=== PATIENT | female | born 1960 | race Caucasian/White ===

== ENCOUNTER 2019-01-05 09:27 | Outpatient (CLI) | payer OTHER, SELFPAY ==
--- NOTE | 2019-01-05 13:10 | DI.MAMMO_ITS ---
EXAM: MG MAMMO SCREENING CLINICAL HISTORY: SCREENING Z12.31 TECHNIQUE: Bilateral full field digital CC and MLO mammographic images were obtained with 3D tomosyn thesis and utilizing computer aided detection (CAD). COMPARISON: Available for comparison. FINDINGS: Masses/Architectural Distortion: None seen. Microcalcifications: No suspicious pleomorphic-type are seen. Skin Thickening/Nipple Retraction: None. IMPRESSION: 1. No significant interval change with no specific features of malignancy noted. 2. Unless there is more urgent need, screening mammography is recommended, as per [place] guidelines. ACR BI-RAD Category- 1 Negative Breast Density - Category B - Scattered areas of fibroglandular density A negative radiographic report should not delay biopsy if a dominant or clinically suspicious mass is present. Up to ten percent of cancers are not identified on mammography. A negative report may reinforce clinical impression. Adenosis and dense breasts may obscure an underlying neoplasm. False positive reports average 6 to 10%. Patient will receive a letter notifying them of these results.
== END 2019-01-05 09:47 ==
PROVIDERS: PCP Family Medicine; Visit Provider Physician Assistant Medical
DX: Z12.31 Encounter for screening mammogram for malignant neoplasm of breast (principal)
CPT/HCPCS: 77063; 77067

== ENCOUNTER 2020-07-30 02:34 | Outpatient (CLI) | payer OTHER, SELFPAY ==
--- NOTE | 2020-07-30 | DI.MAMMO_ITS ---
Exam(s) MAMMO SCREENING EXAM: MAMMO SCREENING CLINICAL HISTORY: SCREENING, Z12.31 TECHNIQUE: Bilateral full field digital CC and MLO mammographic images were obtained with 3D tomosyn thesis and utilizing computer aided detection (CAD). COMPARISON: Available for comparison. FINDINGS: Masses/Architectural Distortion: None seen. Microcalcifications: No suspicious pleomorphic-type are seen. Skin Thickening/Nipple Retraction: None. IMPRESSION: 1. No significant interval change with no specific features of malignancy noted. 2. Unless there is more urgent need, screening mammography is recommended, as per [place] guidelines. BI-RADS Category 1 - Negative Breast Density - Category B - Scattered areas of fibroglandular density Breast density category C or D implies that the patient has dense breast tissue. Dense breast tissue is very common and is not abnormal but dense breast tissue can make it harder to find cancer on a ma mmogram. Also, dense breast tissue may increase their breast cancer risk. This information about the result of the mammogram report was provided to the patient to raise their awareness. Use this report when you speak with the patient about their risks for breast cancer, which includes their family hist ory. At that time, you may recommend for more screening tests (Ultrasound or MRI) as they might be us eful based on their risk. A negative radiographic report should not delay biopsy if a dominant or clinically suspicious mass is present. Up to ten percent of cancers are not identified on mammography. A negative report may reinforce clinical impression. Adenosis and dense breasts may obscure an underlying neoplasm. False positive reports average 6 to 10%. Patient will receive a letter notifying them of these results.
== END 2020-07-30 02:54 ==
PROVIDERS: PCP Family Medicine; Visit Provider Family Medicine
DX: Z12.31 Encounter for screening mammogram for malignant neoplasm of breast (principal)
CPT/HCPCS: 77063; 77067

== ENCOUNTER 2020-07-30 08:17 | Emergency (ER) | payer OTHER, SELFPAY ==
--- NOTE | 2020-07-30 08:18 | W.ED.GENAD ---
Discharge Plan Disposition Patient Disposition: HOME Condition: Stable Discharge Details Clinical Impression: Tick bite of abdomen Primary Care Provider: Lala Messina ED Provider: Kirill Pascual Home Meds and New Rx's Prescriptions: Continued ergocalciferol (vitamin D2) 1,250 mcg (50,000 unit) capsule 1,250 mcg PO DAILY RF: 0 loratadine 10 mg Tablet 10 mg PO DAILY RF: 0 Discharge Instructions Instructions: Tick Bite (ED) Additional Instructions: According to your presentation, it does not sound like the tick was embedded in your skin for prolonged period of time. A single dose of antibiotics, doxycycline was given here in the ER. We also updated her tetanus shot. Please watch for new or worsening symptoms and return to the ER for any concerns. Medical Decision Making 60-year-old female presents with a tick bite, believes it was sustained sometime yesterday but she does garden on a daily basis. Clinically she appears well, nontoxic, no signs of secondary infection or foreign body. She did present with a tick in a plastic baggy, was able to confirm it was a deer tick. The tick was not engorged. Tetanus status is unknown. Will update tetanus today and given she is asymptomatic, unknown duration of the tick bite, will get a single dose of 200 mg p.o. doxycycline. We did discuss the importance of watching for bull's-eye-like rash, joint pain, fever, etc. and either return to the ER or contacting her primary care provider. Medical Records Medical records reviewed: Yes I reviewed the patient's medical records. HPI General Mode of arrival: ambulatory. Date/Time Provider Initiated Documentation: 07/30/20 08:17. Limitations to Documentation: no limitations. Information obtained by: patient. HPI Narrative: This is a 60-year-old female, denies significant past medical history, presenting to the ER stating that she pulled a tick off of her right flank this morning. She is currently asymptomatic. She states that she is typically outside in her garden every day but did not notice a tick yesterday morning or afternoon. Assumes the tick presented itself sometime yesterday. She does have a tick present, able to identified as a deer tick. She reports a localized bruise with a tick was attached but denies any redness, warmth, discomfort, fever, joint pain. Patient has no additional questions or concerns. Related Data Home Medications Medication Instructions Recorded Confirmed ergocalciferol (vitamin D2) 1,250 mcg PO DAILY 07/30/20 07/30/20 loratadine 10 mg PO DAILY 07/30/20 07/30/20 Allergies Allergy/AdvReac Type Severity Reaction Status Date / Time clindamycin Allergy Unverified 07/30/20 08:28 Review of Systems Constitutional Constitutional: Denies fever(s) Musculoskeletal Musculoskeletal: Denies arthralgias Integumentary/Breasts Skin/Breast: Denies erythema and Denies rash [facility] Social History Smoking/Tobacco Use Status: Former Tobacco Use Smoking risk assessment performed?: Yes Alcohol Intake: never Drug use: Never Do you feel safe at home: Yes Do you feel safe in your relationship?: Yes Exam Const General: cooperative, healthy appearing, comfortable and no acute distress Orientation: alert and awake HENMT Head: normal to inspection, normocephalic and atraumatic Eyes General: appearance normal, both eyes and all related structures Conjunctivae: conjunctivae normal Neck Neck: normal visual inspection, trachea midline and supple Resp Effort & Inspection: normal respiratory effort and able to speak in complete sentences GI Palpation: soft and nontender Abdomen image: 1. 0.5 cm circular area of macular ecchymosis. There is no erythema, warmth, tenderness or obvious foreign body. No signs of secondary infection, induration or fluctuance. No drainage. Skin Rashes: no rashes Neuro General: patient alert, patient awake, moves all extremities and no focal motor deficits Cognition: normal cognition Speech: speech normal Gait: normal gait Sensory Exam: no sensory deficits noted Psych Appearance: grossly normal Mental Status: mental status grossly normal
[2020-07-30 08:22] VITALS: BP 169/66; PULSE 88; RESP 18; TEMP 36.5; O2SAT 98
[2020-07-30] MEDS: Doxycycline Hyclate 100 MG CAP 200 MG PO (09:01)
== END 2020-07-30 09:08 | disposition home or self-care (01) ==
PROVIDERS: Emergency Provider Physician Assistant; PCP Family Medicine
DX: S30.861A Insect bite (nonvenomous) of abdominal wall, initial encounter (principal); W57.XXXA Bitten or stung by nonvenomous insect and other nonvenomous arthropods, initial encounter
CPT/HCPCS: 90471; 99283

== ENCOUNTER 2021-08-02 11:25 | Emergency (ER) | payer OTHER, SELFPAY ==
[2021-08-02 11:28] VITALS: BP 180/80; PULSE 84; RESP 16; TEMP 36.2; O2SAT 97
--- NOTE | 2021-08-02 11:45 | ED.GENADUL_ITS ---
Discharge Plan Disposition Patient Disposition: HOME Condition: Improving Discharge Details Chief Complaint: RashLesion Clinical Impression: Tick bite Primary Care Provider: Deepthi Arrington ED Provider: Mal Phelps Home Meds and New Rx's Prescriptions: No Action ergocalciferol (vitamin D2) 1,250 mcg (50,000 unit) capsule 1,250 mcg PO DAILY loratadine 10 mg Tablet 10 mg PO DAILY Discharge Instructions Instructions: Tick Bite (ED) Additional Instructions: Please return to the emergency department if you have worsening symptoms such as fevers chills nausea vomiting trouble breathing spreading rash joint pain chest pain or other abnormal symptomatology. Please follow-up with your primary care physician Medical Decision Making 60-year-old female presents with tick on her back, unknown duration, tick is engorged, localized erythema at site of bite, no erythema migrans, no systemic signs of illness at this time. Will treat empirically with prophylactic dose of doxycycline 200 mg orally. Given strict return precautions for signs of systemic illness or spreading rash. HPI General Date/Time Provider Initiated Documentation: 08/02/21 11:44 . HPI Narrative: 61-year-old female presents endorsing finding a tick on her back, does not know how long it was there, denies pain fevers chills nausea vomiting or other systemic symptoms. Was guarding over the past couple of days. Related Data Home Medications Medication Instructions Recorded Confirmed ergocalciferol (vitamin D2) 1,250 1,250 mcg PO DAILY 07/30/20 08/02/21 mcg (50,000 unit) capsule loratadine 10 mg tablet 10 mg PO DAILY 07/30/20 08/02/21 Allergies Allergy/AdvReac Type Severity Reaction Status Date / Time clindamycin Allergy Unverified 08/02/21 11:32 General Stated Complaint: RashLesion REBECCA: 4 Review of Systems Narrative: Review of Systems Constitutional: negative Eyes: negative ENT: negative Cardiovascular: negative Respiratory: negative Gastrointestinal: negative : negative Musculoskeletal: negative Skin: Tick on back Neurologic: negative Psych: negative PFSH All Active Problems (Updated 08/02/21 @ 11:50 by Mal Phelps MD) Tick bite of abdomen (Acute) Tick bite (Acute) Social History Smoking/Tobacco Use Status: Former Tobacco Use Smoking risk assessment performed?: Yes Alcohol Intake: never Drug use: Never Do you feel safe at home: Yes Do you feel safe in your relationship?: Yes Exam Narrative Exam Narrative: Physical Examination General: alert, awake, cooperative, resting comfortably, no acute distress HEENT: normocephalic, atraumatic; PERRL, EOM intact, conjunctiva normal; no nasal discharge; moist mucous membranes, oral and pharyngeal mucosa normal, tolerating secretions Neck: supple, trachea midline; full ROM Chest: normal to inspection Respiratory: normal respiratory effort, speaking in full sentences, clear to auscultation, no wheezing, rales or rhonchi Cardiac: regular rate, regular rhythm, S1S2 intact, no murmurs rubs or gallops GI: abdomen soft, non-tender, non-distended; no palpable mass or hepatosplenomegaly Skin: Engorged tick on the right back, localized erythema tick bite site without evidence of erythema migrans Neuro: AAOx3, normal speech, moving all extremities Psych: Appropriate mood and affect Course Vital Signs Vital signs: Vital Signs Temperature 36.2 C L 08/02/21 11:28 Pulse 84 08/02/21 11:28 Respiratory Rate 16 08/02/21 11:28 Blood Pressure 180/80 H 08/02/21 11:28 Pulse Oximetry 97 08/02/21 11:28 Temperature 36.2 C L 08/02/21 11:28 Temperature Source Tympanic 08/02/21 11:28 Pulse 84 08/02/21 11:28 Respiratory Rate 16 08/02/21 11:28 Respiratory Effort 08/02/21 11:34 Blood Pressure 180/80 H 08/02/21 11:28 Blood Pressure Position Sitting 08/02/21 11:28 Pulse Oximetry 97 08/02/21 11:28 Oxygen Delivery Method Room Air 08/02/21 11:28 Oxygen Flow Rate 0 08/02/21 11:28 Pain Level 0 08/02/21 11:28
[2021-08-02] MEDS: Doxycycline Hyclate 100 MG CAP 200 MG PO (12:02)
== END 2021-08-02 14:02 | disposition home or self-care (01) ==
PROVIDERS: Emergency Provider Emergency Medicine; PCP Physician Assistant Medical
DX: S30.860A Insect bite (nonvenomous) of lower back and pelvis, initial encounter (principal); W57.XXXA Bitten or stung by nonvenomous insect and other nonvenomous arthropods, initial encounter
CPT/HCPCS: 99283

== ENCOUNTER → 2021-09-05 01:38 | Outpatient (CLI) | payer OTHER, SELFPAY ==
--- NOTE | 2021-09-05 14:30 | DI.DEXA_ITS ---
Exam(s) XR DEXA BONE DENSITY W/WO TAYLOR EXAM: XR DEXA BONE DENSITY W/WO TAYLOR CLINICAL HISTORY: POSTMENOPAUSAL, Z78.0; PREVENTATIVE HEALTH CARE, Z00.00 TECHNIQUE: COMPARISON: Comparison examination is 03/24/2011. FINDINGS: Lateral Spine Image: Unremarkable. No compression deformities identified. Left hip: Total T-Score: -1.3. This compares to -0.5 on the prior examination. This is a decrease in the bone mineral density. Total Z-Score: -0.2 T- and Z-scores: Findings are consistent with osteopenia. There is osteoporosis in the femoral neck with a T-score of -2.9. Lumbar Spine: Total T-Score: -3.7. This compares to -2.4 on the prior examination. This is a decrease in the bone mineral density. Total Z-Score: -2.0 T- and Z-scores: Findings are consistent with osteoporosis. IMPRESSION: Findings of osteoporosis in the lumbar spine.
--- NOTE | 2021-09-05 15:00 | DI.MAMMO_ITS ---
Exam(s) MAMMO SCREENING EXAM: MAMMO SCREENING CLINICAL HISTORY: YEARLY SCREENING, Z12.31 TECHNIQUE: Bilateral full field digital CC and MLO mammographic images were obtained with 3D tomosyn thesis and utilizing computer aided detection (CAD). COMPARISON: Available for comparison. FINDINGS: Masses/Architectural Distortion: None seen. Microcalcifications: No suspicious pleomorphic-type are seen. Skin Thickening/Nipple Retraction: None. IMPRESSION: 1. No significant interval change with no specific features of malignancy noted. 2. Unless there is more urgent need, screening mammography is recommended, as per [place] guidelines. BI-RADS Category 1 - Negative Breast Density - Category B - Scattered areas of fibroglandular density Breast density category C or D implies that the patient has dense breast tissue. Dense breast tissue is very common and is not abnormal but dense breast tissue can make it harder to find cancer on a ma mmogram. Also, dense breast tissue may increase their breast cancer risk. This information about the result of the mammogram report was provided to the patient to raise their awareness. Use this report when you speak with the patient about their risks for breast cancer, which includes their family hist ory. At that time, you may recommend for more screening tests (Ultrasound or MRI) as they might be us eful based on their risk. A negative radiographic report should not delay biopsy if a dominant or clinically suspicious mass is present. Up to ten percent of cancers are not identified on mammography. A negative report may reinforce clinical impression. Adenosis and dense breasts may obscure an underlying neoplasm. False positive reports average 6 to 10%. Patient will receive a letter notifying them of these results.
== END ==
PROVIDERS: PCP Physician Assistant Medical; Visit Provider Physician Assistant Medical
DX: Z12.31 Encounter for screening mammogram for malignant neoplasm of breast (principal); Z00.00 Encounter for general adult medical examination without abnormal findings; R92.8 Other abnormal and inconclusive findings on diagnostic imaging of breast; M81.0 Age-related osteoporosis without current pathological fracture; Z78.0 Asymptomatic menopausal state
CPT/HCPCS: 77063; 77067; 77080

== ENCOUNTER → 2023-06-01 03:03 | Outpatient (CLI) | payer OTHER, SELFPAY ==
--- NOTE | 2023-06-01 08:38 | DI.MAMMO_ITS ---
Exam(s) MAMMO SCREENING EXAM: MAMMO SCREENING CLINICAL HISTORY: SCREENING,Z00.00,adult health exam. TECHNIQUE: Bilateral full field digital CC and MLO mammographic images were obtained with 3D tomosyn thesis and utilizing computer aided detection (CAD). COMPARISON: Prior mammograms were reviewed. FINDINGS: There has been no significant change in the appearance and distribution of the fibroglandular tissue. There are no new spiculated masses nor malignant appearing microcalcification groups. There is no significant architectural distortion nor skin thickening-retraction. IMPRESSION: No radiographic evidence of malignancy. BI-RADS Category 1 - Negative Breast Density - Category B - Scattered areas of fibroglandular density Breast density Category C or D implies that the patient has dense breast tissue. Dense breast tissue can make it harder to find cancer on a mammogram. Dense breast tissue is also associated with an incr eased risk of breast cancer. This information about the result of the mammogram report was provided to the patient to raise their awareness. Use this report when you speak with the patient about their risks for breast cancer, which includes their family history. At that time, you may recommend additional screening tests (Ultrasoun d or MRI) as these tests may add significant information. A negative radiographic report should not delay biopsy if a dominant or clinically suspicious mass is present. Up to ten percent of cancers are not identified on mammography. A negative report may reinforce clinical impression. Adenosis and dense breasts may obscure an underlying neoplasm. False positive reports average 6 to 10%. Patient will receive a letter notifying them of these results.
== END ==
PROVIDERS: PCP Physician Assistant Medical; Visit Provider Family Medicine
DX: Z12.31 Encounter for screening mammogram for malignant neoplasm of breast (principal)
CPT/HCPCS: 77063; 77067

== ENCOUNTER → 2023-06-15 03:29 | Outpatient (CLI) | payer OTHER, SELFPAY ==
--- NOTE | 2023-06-15 | DI.US_ITS ---
APPROVED REPORT EXAM: Comprehensive 2D, Doppler, and color-flow Echocardiogram Patient Location: Out-Patient Inner Tube Cutter: Roxanna Cadrenas RDCS (AE) Other Information Study Quality: Adequate Conclusion Normal left ventricular wall thickness and chamber size. EF is 55-60% Normal right ventricular size and function Both atria are normal in size. Trileaflet aortic valve with mild eccentric regurgitation Normal mitral valave with mild regurgitation Moderate to severe tricuspid regurgitation. Estimated right ventricular systolic pressure is 31 mmHg Mildly dilated aortic root and ascending aorta Wall motion Left Ventricle The left ventricle is normal size. The left ventricular systolic function is normal. The left ventric ular ejection fraction is within the normal range. There is normal left ventricular wall thickness. T here is normal LV segmental wall motion. There is no ventricular septal defect visualized. LVEF is 55 -60%. Right Ventricle The right ventricle is normal size. The right ventricular systolic function is normal. Atria The left atrium size is normal. The right atrium size is normal. The atrial septum is aneurysmal. Aortic Valve Aortic valve is trileaflet. There is no aortic valvular stenosis. Mild eccentric aortic regurgitatio n. Mitral Valve The mitral valve is normal in structure. No evidence of mitral valve stenosis. Mild mitral regurgitat ion. Tricuspid Valve The tricuspid valve is normal in structure. There is no tricuspid valve stenosis. Moderate to severe tricuspid regurgitation. The RVSP is 30.7_ mmHg. Pulmonic Valve The pulmonary valve is normal in structure. There is no pulmonic valvular stenosis. Mild pulmonic reg urgitation. Great Vessels Aortic root is mildly dilated. The ascending aorta is mildly dilated. Aortic arch is not well visual ized. IVC is normal in size and collapses >50% with inspiration. Pericardium There is no pericardial effusion. 2D Dimensions IVSD d PLAX 0.89 cm F: 0.6-1.0 Ao Root d 3.77 cm F: 2.7 - 3.3 LVPW d PLAX 0.95 cm F: 0.6 - 1.0 Ao Asc Diam d 3.63 cm F: 2.3 - 3.1 LVID d PLAX 4.53 cm F: 3.8 - 5.2 LVDs 3.24 cm F: 2.2 - 3.5 LV EF Teichholz 54.9 % FS 28.37 % LV EDV (Teich) 93.8 mL LV ESV (Teich) 42.3 mL M-Mode TAPSE 2.60 cm (M/F) >1.7 Auto EF LV EDV A4C 89.7 mL LV EDV A2C 115.9 mL LV EDV BP 103.2 mL LV ESV A4C 41.0 mL LV ESV A2C 53.3 mL LV ESV BP 46.2 mL LVEF(%) A4C 54.3 % LVEF(%) A2C 54.0 % LVEF(%) BP 55.2 % LV SV A4C 48.8 ml LV SV A2C 62.6 ml LV SV BP 57.0 ml LV CO A4C 3.3 L/min LV CO A2C 4.3 L/min LV CO BP 3.8 L/min HR A4C 67.17 BPM HR A2C 69.10 BPM LV EDV Index (BP) LA Volume LA Length A4C 5.2 cm LA Length A2C 5.7 cm LA Area A4C s 16.51 cm2 LA Area A2C s 17.54 cm2 LA Vol A4C A-L 44.29 mL LA Vol A2C A-L 46.04 mL LA Vol Biplane A-L 47.0 mL LA Vol/BSA A4C A-L LA Vol/BSA A2C A-L LA Vol/BSA BP A-L 30.4 mL/m2 LA Vol A4C MOD 41.6 mL LA Vol A2C MOD 43.1 mL LA Vol BP MOD 43.6 mL RA Volume RA Area A4C 11.7 cm2 RA ESV A4C (A-L) 25.9mL RA Vol/BSA A4C A-L RA Length A4C 4.5 cm RA ESV A4C (MOD) 26.1mL LV Diastology MV E' medial 0.098 (>0.07 m/s) MV E Vmax 0.59 (0.4-1.3 m/s) MV E/E' MED 6.06 (<14) MV A Vmax 0.80 (0.4-1.3 m/s) MV E' lateral 0.082 (>0.1 m/s) E/A Ratio 0.7 MV E/E' LAT 7.26 (<14) MV E' Average 0.090 m/s MV E/E'(average) 6.61 Aortic Valve AoV Vmax 1.68 m/s LVOT Vmax 1.22 m/s AoV Peak Grad 48.1 mmHg LVOT Peak Grad 6.0 mmHg AoV Area (Vmax) 2.22 cm2 LVOT VTI 0.260 m AoV VTI 0.341 m LVOT Mean Grad 3.2 mmHg AoV Mean Benjamin. 1.04 m/s LVOT SV 79.46 mL AoV Mean Grad 5.2 mmHg LVOT Diam s 1.95 cm AoV Area (VTI) 2.33 cm2 AV Regurg Peak Gr. 84.75 mmHg Velocity Ratio 0.73 AR Decel Swain 1.7m/sec2 AR DT 2770 msec AR PHT 803 msec AR Vmax 4.60 m/s Mitral Valve MV DT 237 (160-240 msec) MV Vmax TIPS 0.91 m/s MV Mean Grad 1.4 (<2mmHg) MV VTI 0.246 m Pulmonary Valve PV Vmax 1.17 (0.5-1.5 m/s) RVOT Vmax 0.81 m/s PV Peak Grad 5.5 mmHg RVOT Peak Gr. 2.6 mmHg PV Mean Benjamin 0.82 m/s RVOT VTI 0.188 m PV Mean Grad 3.0 mmHg RVOT Mean Gr. 1.7 mmHg Tricuspid Valve RA Pressure 3.00 mmHg TR Vmax 2.63 m/s TV S' 0.20 m/s TR Peak Grad 27.6 mmHg RVSP (TR) 30.7 mmHg
== END ==
PROVIDERS: PCP Physician Assistant Medical; Visit Provider Family Medicine
DX: R01.1 Cardiac murmur, unspecified (principal)
CPT/HCPCS: 93306